=== PATIENT | female | born 1985 | race Caucasian/White ===

== ENCOUNTER 2018-01-30 20:35 | Emergency (ER) | payer OTHER ==
[~2018-01-30] VITALS: Ht 157.5 cm; Wt 74.8 kg
[2018-01-30 20:40] VITALS: BP 153/88; Ht 157.5 cm; Wt 74.8 kg
== END 2018-01-30 22:59 | disposition left against medical advice (07) ==
LOC: ED 20:35
DX: Z53.21 Procedure and treatment not carried out due to patient leaving prior to being seen by health care provider (principal)